=== PATIENT | male | born 1950 | race Hispanic/Latino ===

== ENCOUNTER 2022-06-29 08:28 | Observation (INO) | payer MEDICARE ==
[~2022-06-29] VITALS: Ht 167.6 cm; Wt 97.5 kg
[2022-06-29 09:19] LABS: BASOPHILS # (AUTO) 0.1 (0.0-0.1); BASOPHILS % 0.7 % (0.0-1.0); EOSINOPHILS # (AUTO) 0.1 (0.0-0.4); EOSINOPHILS % 1.9 % (0.0-6.0); HEMATOCRIT 47.1 % (38.2-49.6); LYMPHOCYTES # (AUTO) 2.7 (1.0-3.2); LYMPHOCYTES % 37.9 % (18.0-39.1); MEAN CORPUSCULAR HEMOGLOBIN 30.2 pg (28-32); MEAN CORPUSCULAR HGB CONC 31.8 g/dL (31-35); MEAN CORPUSCULAR VOLUME 94.8 fL (81-99); MONOCYTES # (AUTO) 0.4 (0.2-0.8); MONOCYTES % 4.9 % (4.4-11.3); NEUTROPHILS # (AUTO) 3.9 (2.1-6.9); NEUTROPHILS % 54.2 % (38.7-80.0); PLATELET COUNT 164 x10e3/uL (140-360); RED BLOOD COUNT 4.97 x10e6/uL (4.3-5.7)
[2022-06-29 09:21] LABS: CLARITY,URINE CLEAR (CLEAR); COLOR,URINE YELLOW (YELLOW); KETONES,URINE NEGATIVE (NEGATIVE); LEUKOCYTE ESTERASE ,URINE NEGATIVE (NEGATIVE); NITRITE,URINE NEGATIVE (NEGATIVE); PROTEIN,URINE DIPSTICK NEGATIVE (NEGATIVE); URINE UROBILINOGEN 0.2 mg/dL (0.2 - 1)
[2022-06-29 09:34] LABS: BACTERIA,URINE RARE /HPF; WBC,URINE (MAN) 0-5 /HPF (0-5)
[2022-06-29 09:37] LABS: INR 0.97; PROTHROMBIN TIME 13.1 seconds (11.9-14.5)
[2022-06-29 09:38] LABS: PARTIAL THROMBOPLASTIN TIME 28.3 seconds (23.8-35.5)
[2022-06-29 09:46] LABS: ALBUMIN 4.1 g/dL (3.5-5.0); ALBUMIN/GLOBULIN RATIO 1.2 (0.8-2.0); ANION GAP 16.6 mmol/L (8-16); CREATININE, SERUM 0.99 mg/dL (0.72-1.25); POTASSIUM 4.6 mmol/L (3.5-5.1)
[2022-06-29] MEDS ORDERED: IOPAMIDOL 370 MG/ML 100 ML INFUS..BTL INJ ONE (10:20)
[2022-06-29] MEDS ORDERED: SODIUM CHLORIDE 0.9% 100 ML ONE (10:20)
[2022-06-29] MEDS ORDERED: Morphine 4mg INJECTION 4 MG/ML INJ IV PRN (11:45)
[2022-06-29] MEDS ORDERED: ONDANSETRON HCL INJ 2MG/ML 2ML 2 MG/ML VIAL IV PRN (11:45)
[2022-06-29] MEDS ORDERED: ACETAMINOPHEN 1000 MG/100 ML 100 ML IV ONE (13:53)
[2022-06-29 14:30] VITALS: BP 108/70
[2022-06-29] MEDS ORDERED: METFORMIN HCL500 M2 PO (15:18)
[2022-06-29] MEDS ORDERED: ATORVASTATIN CA20 MG PO (15:18)
[2022-06-29] MEDS ORDERED: VASOTEC5 MG PO (15:18)
[2022-06-29] MEDS ORDERED: JARDIANCE25 MG PO (15:18)
[2022-06-29] MEDS ORDERED: ASPIRIN EC81 MG PO (15:18)
[2022-06-29 16:00] VITALS: BP 108/70
[2022-06-29] MEDS: SODIUM CHLORIDE 0.9% 1000ML 1,000 ML IV SCH ×2 (16:00→21:10)
[2022-06-29] MEDS ORDERED: DEXTROSE 50% SYRINGE 50 ML IV PRN (17:30)
[2022-06-29] MEDS ORDERED: DEXAMETHASONE SOD PHOS INJ 4 MG/ML SDV ONE (17:32)
[2022-06-29] MEDS ORDERED: LIDOCAINE HCL 2% LOCAL INJ 5 ML SDV VIAL INJ ONE (17:32)
[2022-06-29] MEDS ORDERED: PROPOFOL IV EMULSION 10 MG/ML 20 ML VIAL ONE (17:32)
[2022-06-29] MEDS ORDERED: POVIDONE IODINE 0.05% 0.05 % ML PO ONE (17:32)
[2022-06-29] MEDS ORDERED: ONDANSETRON HCL INJ 2MG/ML 2ML 2 MG/ML VIAL ONE (17:32)
[2022-06-29] MEDS ORDERED: SEVOFLURANE INHAL SOLN 250 ML PEN BTL ONE (17:32)
[2022-06-29] MEDS ORDERED: SUCCINYLCHOLINE CHLORIDE 20 MG/ML 10ML VIAL ONE (17:32)
[2022-06-29] MEDS ORDERED: EPINEPHRINE HCL 1:1000 1ML 1 MG/ML AMP ONE (17:32)
[2022-06-29 20:28] VITALS: BP 118/78
[2022-06-29 21:00] VITALS: BP 118/78
[2022-06-29] MEDS ORDERED: ATORVASTATIN 20 MG TAB PO SCH (21:00)
[2022-06-29] MEDS: INSULIN LISPRO 100 UNIT/1 ML 3ML VIAL SQ SCH (21:02)
[2022-06-30] VITALS: BP 94/62
[2022-06-30] MEDS: SODIUM CHLORIDE 0.9% 1000ML 1,000 ML IV SCH (03:40)
[2022-06-30 05:05] VITALS: BP 138/91
[2022-06-30 05:53] LABS: BASOPHILS % 0.2 % (0.0-1.0); HEMATOCRIT 37.4 % (38.2-49.6); HEMOGLOBIN 12.7 g/dL (14.0-18.0); LYMPHOCYTES # (AUTO) 1.7 (1.0-3.2); LYMPHOCYTES % 18.3 % (18.0-39.1); MEAN CORPUSCULAR VOLUME 88.2 fL (81-99); MONOCYTES # (AUTO) 0.3 (0.2-0.8); MONOCYTES % 3.4 % (4.4-11.3); NEUTROPHILS # (AUTO) 7.2 (2.1-6.9); NEUTROPHILS % 77.7 % (38.7-80.0); PLATELET COUNT 160 x10e3/uL (140-360); RED BLOOD COUNT 4.24 x10e6/uL (4.3-5.7); RED CELL DISTRIBUTION WIDTH 13.2 % (11.7-14.4)
[2022-06-30 06:21] LABS: ANION GAP 15.1 mmol/L (8-16); CALCIUM 8.5 mg/dL (8.4-10.2); CREATININE, SERUM 0.79 mg/dL (0.72-1.25); POTASSIUM 4.1 mmol/L (3.5-5.1)
[2022-06-30 08:05] VITALS: BP 114/70
[2022-06-30] MEDS ORDERED: ENALAPRIL MALEATE 5 MG TAB PO SCH (09:00)
[2022-06-30] MEDS ORDERED: EMPAGLIFLOZIN 12.5 MG PO SCH (09:00)
[2022-06-30 09:02] VITALS: BP 114/70
[2022-06-30] MEDS: INSULIN LISPRO 100 UNIT/1 ML 3ML VIAL SQ SCH (09:12)
== END 2022-06-30 10:39 | disposition home or self-care (01) ==
LOC: ER 08:31 → ERHOLD 11:35 → PACU V 12:47 → MED/SURG3 14:20
PROVIDERS: ADMIT Internal Medicine; ATTEND Internal Medicine
DX: K92.2 Gastrointestinal hemorrhage, unspecified (principal); K64.8 Other hemorrhoids; Z98.890 Other specified postprocedural states; E11.9 Type 2 diabetes mellitus without complications; I10 Essential (primary) hypertension; K74.60 Unspecified cirrhosis of liver; E78.5 Hyperlipidemia, unspecified; Z20.822 Contact with and (suspected) exposure to COVID-19; Z79.84 Long term (current) use of oral hypoglycemic drugs; Z79.899 Other long term (current) drug therapy
CPT/HCPCS: 36415; 44391; 45378; 74174; 80048; 80053; 81001; 82948; 84484; 85025; 85610; 85730; 86850; 86900; 94799; 96360; 99284; G0378; J0171; J0330; J1100; J2001; J2405; J7030; J7050; Q9967

== ENCOUNTER 2024-04-08 20:06 | Emergency (ER) | payer MEDICARE ==
[~2024-04-08] VITALS: Ht 167.6 cm; Wt 97.5 kg
[~2024-04-08 20:06] MED LIST: ASPIRIN EC81 MG PO; ATORVASTATIN CA20 MG PO; JARDIANCE25 MG PO; METFORMIN HCL500 M2 PO; VASOTEC5 MG PO
[2024-04-08 20:32] LABS: BASOPHILS # (AUTO) 0.1 (0.0-0.1); BASOPHILS % 1.3 % (0.0-1.0); EOSINOPHILS # (AUTO) 0.4 (0.0-0.4); HEMATOCRIT 41.8 % (38.2-49.6); LYMPHOCYTES # (AUTO) 2.3 (1.0-3.2); LYMPHOCYTES % 37.9 % (18.0-39.1); MEAN CORPUSCULAR HEMOGLOBIN 30.8 pg (28-32); MEAN CORPUSCULAR HGB CONC 33.5 g/dL (31-35); MEAN CORPUSCULAR VOLUME 91.9 fL (81-99); MONOCYTES # (AUTO) 0.4 (0.2-0.8); MONOCYTES % 5.9 % (4.4-11.3); NEUTROPHILS % 48.6 % (38.7-80.0); PLATELET COUNT 144 x10e3/uL (140-360); RED BLOOD COUNT 4.55 x10e6/uL (4.3-5.7); WHITE BLOOD COUNT 6.15 x10e3/uL (4.8-10.8)
[2024-04-08] MEDS: INSULIN REGULAR, HUMAN 100 UNIT/1 ML SQ ONE ×2 (20:45→21:54)
[2024-04-08] MEDS: SODIUM CHLORIDE 0.9% 1000ML 1,000 ML IV ONE (20:47)
[2024-04-08 20:50] LABS: ALBUMIN 3.9 g/dL (3.5-5.0); ALBUMIN/GLOBULIN RATIO 1.1 (0.8-2.0); ANION GAP 13.4 mmol/L (8-16); BILIRUBIN,TOTAL 0.7 mg/dL (0.2-1.2); CREATININE, SERUM 1.2 mg/dL (0.72-1.25); POTASSIUM 4.4 mmol/L (3.5-5.1); TOTAL PROTEIN 7.6 g/dL (6.5-8.1)
[2024-04-08 22:00] VITALS: PULSE 74; RESP 18; TEMP 98.4
[2024-04-08 23:30] VITALS: BP 118/62; PULSE 75; RESP 18; TEMP 98.3; O2SAT 99
== END 2024-04-08 23:24 | disposition home or self-care (01) ==
LOC: ER 21:39
DX: E11.00 Type 2 diabetes mellitus with hyperosmolarity without nonketotic hyperglycemic-hyperosmolar coma (NKHHC) (principal); I10 Essential (primary) hypertension; K76.9 Liver disease, unspecified; E78.5 Hyperlipidemia, unspecified
CPT/HCPCS: 36415; 80053; 82948; 85025; 99283; J1817; J7030